=== PATIENT | female | born 1980 | race Asian ===

== ENCOUNTER 2021-10-01 01:50 | Emergency (ER) | payer MEDICAID ==
[~2021-10-01] VITALS: Ht 165.1 cm; Wt 74.8 kg
[2021-10-01 01:51] VITALS: BP 97/66
[2021-10-01] MEDS ORDERED: methylPREDNISolone SOD SUCC 125 MG/2 ML VL IM ONE (02:30)
== END 2021-10-01 02:33 | disposition home or self-care (01) ==
LOC: ER 01:50
DX: L50.9 Urticaria, unspecified (principal); Z88.2 Allergy status to sulfonamides
CPT/HCPCS: 96372; 99283; J2930

== ENCOUNTER 2022-01-11 20:13 | Emergency (ER) | payer MEDICAID ==
[~2022-01-11] VITALS: Ht 165.1 cm; Wt 75.0 kg
[2022-01-11 20:31] VITALS: BP 112/76
== END 2022-01-11 20:38 ==
LOC: EDBD 20:13 → ER 20:14
DX: Z04.1 Encounter for examination and observation following transport accident (principal)